=== PATIENT | male | born 1970 | race Hispanic/Latino ===

== ENCOUNTER 2019-05-26 23:11 | Emergency (ER) | payer BC ==
[2019-05-26] MEDS ORDERED: IBUPROFEN 600 MG TABLET ONE (23:50)
[2019-05-26] MEDS ORDERED: NEOMYCIN/POLYMYXIN/HC OTIC SUSP 10ML BOTTLE ONE (23:50)
== END 2019-05-27 00:05 | disposition home or self-care (01) ==
LOC: EDH 23:20
DX: H60.8X1 Other otitis externa, right ear (principal)